=== PATIENT | female | born 1955 | race Native Hawaiian/Other Pacific Islander ===

== ENCOUNTER 2016-06-04 11:45 | Outpatient (CLI) | payer OTHER | END 2016-06-04 19:46 | disposition home or self-care (01) | LOC: RAD 11:45 | DX: S61.451A Open bite of right hand, initial encounter (principal); W54.0XXA Bitten by dog, initial encounter ==

== ENCOUNTER 2016-08-11 12:02 | Outpatient (CLI) | payer OTHER | END 2016-08-11 13:05 | disposition home or self-care (01) | LOC: RAD 12:02 | DX: M25.461 Effusion, right knee (principal) ==

== ENCOUNTER 2018-12-01 22:18 | Emergency (ER) | payer OTHER ==
[~2018-12-01] VITALS: Ht 157.5 cm; Wt 108.9 kg
[2018-12-01 23:10] VITALS: BP 198/100; TEMP 97.9
== END 2018-12-01 23:11 | disposition home or self-care (01) ==
LOC: ED 22:18
DX: S61.452A Open bite of left hand, initial encounter (principal); W54.0XXA Bitten by dog, initial encounter
CPT/HCPCS: 90471; 90715; 99283